=== PATIENT | female | born 1985 | race Caucasian/White ===

== ENCOUNTER 2018-02-07 07:55 | Emergency (ER) | payer OTHER ==
[2018-02-07 08:35] VITALS: BP 114/65
--- NOTE | 2018-02-07 09:08 | UC ---
General HPI - HPI Summary HPI Summary: pt presents to the for evaluation. she wants to know if she has strep throat. she states that she was diagnosed several weeks ago. she did not take her antibiotic the way she was instructed to do so. her 2 children and are ill. she wants to make sure she does not have strep throat. she states that she has been having body aches and not feeling well. - History of Current Complaint Chief Complaint: UCGeneralIllness Stated Complaint: SORE THROAT HEADACHE CONGESTION Hx Obtained From: Patient Hx Last Menstrual Period: 01/20/18 Onset/Duration: Lasting Days Timing: Intermittent Episodes Lasting: Onset Severity: Mild Current Severity: Mild Pain Intensity: 6 - Allergy/Home Medications Allergies/Adverse Reactions: Allergies Allergy/AdvReac Type Severity Reaction Status Date / Time No Known Allergies Allergy Verified 02/07/18 08:32 PMH/Surg Hx/FS Hx/Imm Hx Previously Healthy: Yes - Surgical History Surgical History: Yes Surgery Procedure, Year, and Place: [place] Teeth Extraction - Social History Alcohol Use: Occasionally Substance Use Type: None Smoking Status (MU): Never Smoked Tobacco - Immunization History Most Recent Influenza Vaccination: November 2013 Review of Systems All Other Systems Reviewed And Are Negative: No Constitutional: Positive: Chills. Negative: Fever Skin: Negative: Rash Eyes: Negative: Drainage, Eye Redness ENT: Positive: Sore Throat Respiratory: Negative: Shortness Of Breath, Cough Cardiovascular: Negative: Chest Pain Gastrointestinal: Negative: Abdominal Pain, Vomiting, Diarrhea, Nausea Genitourinary: Negative: Dysuria, Hematuria, Frequency, Urgency Motor: Positive: Negative Neurovascular: Positive: Negative Musculoskeletal: Positive: Myalgia Neurological: Positive: Headache - mild. Negative: Weakness Is Patient Immunocompromised?: No Physical Exam Triage Information Reviewed: Yes Appearance: Well-Appearing, No Pain Distress, Well-Nourished Vital Signs: Initial Vital Signs Temp 98 F 02/07/18 08:31 Pulse 66 02/07/18 08:31 Resp 16 02/07/18 08:31 BP 114/65 02/07/18 08:31 Pulse Ox 100 02/07/18 08:31 Vital Signs Reviewed: Yes Eye Exam: Normal ENT Exam: Normal Dental Exam: Normal Respiratory Exam: Normal Cardiovascular Exam: Normal Abdomen Description: Positive: Nontender, Soft Bowel Sounds: Positive: Present Musculoskeletal Exam: Normal Neurological Exam: Normal Psychological Exam: Normal Skin Exam: Normal Course/Dx - Course Course Of Treatment: rapid strep negative. - Diagnoses Provider Diagnosis: Viral illness Discharge - Sign-Out/Discharge Documenting (check all that apply): Patient Departure All imaging exams completed and their final reports reviewed: No Studies - Discharge Plan Condition: Stable Disposition: HOME Patient Education Materials: Viral Syndrome (ED) Forms: *Work Release Referrals: Reema Benoit PA [Primary Care Provider] - Additional Instructions: Follow up with your primary care physician next week. return if worse or any new symptoms. Take Tylenol 650mg and motrin 600mg by mouth every 6 hours for body aches or fever and chills. - Billing Disposition and Condition Condition: STABLE Disposition: Home
== END 2018-02-07 09:14 | disposition home or self-care (01) ==
LOC: UCCORT 07:55
DX: B34.9 Viral infection, unspecified (principal)
CPT/HCPCS: 87651; 99211; G0463

== ENCOUNTER 2018-02-13 11:45 | Emergency (ER) | payer OTHER ==
[2018-02-13 14:27] VITALS: BP 115/80
--- NOTE | 2018-02-13 14:39 | UC ---
Throat Pain/Nasal Gustavo HPI - HPI Summary HPI Summary: Recently tx'd for STrep that grew out in culture. But pt did not take full antibx course: 3 out of 10 days. Had a few days of improvement but then started w/ fever, bo, little cough, and very sore throat 3 days ago. of note she is trying to get . - History of Current Complaint Chief Complaint: UCRespiratory Stated Complaint: SORE THROAT Time Seen by Provider: 02/13/18 14:22 Hx Obtained From: Patient Hx Last Menstrual Period: 01/20/18 ?: Yes - there is chance of as she is trying Onset/Duration: Gradual Onset Pain Intensity: 8 Pain Scale Used: 0-10 Numeric Cough: None - little to occasional Associated Signs & Symptoms: Positive: Dysphagia, Fever. Negative: Drooling, Wheezing, Hoarseness - Allergies/Home Medications Allergies/Adverse Reactions: Allergies Allergy/AdvReac Type Severity Reaction Status Date / Time No Known Allergies Allergy Verified 02/13/18 14:19 Home Medications: Home Medications Acetaminophen TAB* [Tylenol TAB*] 650 mg PO Q4H PRN 02/13/18 [History Confirmed 02/13/18] PMH/Surg Hx/FS Hx/Imm Hx Previously Healthy: Yes - Surgical History Surgical History: Yes Surgery Procedure, Year, and Place: [place] Teeth Extraction - Social History Alcohol Use: Occasionally Substance Use Type: None Smoking Status (MU): Never Smoked Tobacco - Immunization History Most Recent Influenza Vaccination: November 2013 Review of Systems All Other Systems Reviewed And Are Negative: Yes Constitutional: Positive: Fever, Chills Skin: Negative: Rash ENT: Positive: Sore Throat. Negative: Ear Ache, Nasal Discharge, Sinus Congestion Respiratory: Positive: Negative Cardiovascular: Positive: Negative Neurological: Positive: Headache Physical Exam Triage Information Reviewed: Yes Appearance: Well-Appearing Vital Signs: Initial Vital Signs Temp 99.6 F 02/13/18 14:20 Pulse 103 02/13/18 14:20 Resp 20 02/13/18 14:20 BP 115/80 02/13/18 14:20 Pulse Ox 99 02/13/18 14:20 Vital Signs Reviewed: Yes Eyes: Positive: Conjunctiva Clear ENT: Positive: Pharyngeal erythema, TMs normal, Tonsillar swelling. Negative: Tonsillar exudate Neck: Positive: Tenderness @ - L ant. cervical. Negative: Nuchal Rigidity Respiratory Exam: Normal Cardiovascular Exam: Normal Neurological: Positive: Alert Skin: Negative: Rashes Throat Pain/Nasal Course/Dx - Course Assessment/Plan: INadequate tx of confirmed strep on culture. Now has return of similar symptoms. Rapid Strep + so will tx once again and have advised to finish med to completion. Urine hcg neg today. - Differential Dx/Diagnosis Differential Diagnosis/HQI/PQRI: Epiglottitis, Pharyngitis, Tonsillitis, URI Provider Diagnosis: Strep pharyngitis Discharge - Sign-Out/Discharge Documenting (check all that apply): Patient Departure All imaging exams completed and their final reports reviewed: No Studies - Discharge Plan Condition: Good Disposition: HOME Prescriptions: Penicillin VK TAB* [Penicillin VK 250 mg Tab*] 500 mg PO BID 10 Days #20 tab Patient Education Materials: Strep Throat (ED) Referrals: Reema Benoit PA [Primary Care Provider] - Additional Instructions: IF not improving please follow up with your pcp. - Billing Disposition and Condition Condition: GOOD Disposition: Home
== END 2018-02-13 15:08 | disposition home or self-care (01) ==
LOC: UCCORT 11:45
DX: Z51.89 Encounter for other specified aftercare (principal); J02.0 Streptococcal pharyngitis; B95.0 Streptococcus, group A, as the cause of diseases classified elsewhere; T36.96XA Underdosing of unspecified systemic antibiotic, initial encounter; Z91.128 Patient's intentional underdosing of medication regimen for other reason; Y92.009 Unspecified place in unspecified non-institutional (private) residence as the place of occurrence of the external cause
CPT/HCPCS: 84702; 87651; 99212; G0463